=== PATIENT | male | born 1970 | race Caucasian/White ===

== ENCOUNTER 2024-04-30 16:09 | Emergency (ER) | payer BC, SELFPAY ==
[2024-04-30 16:18] VITALS: BP 166/94
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
[2024-04-30 17:14] VITALS: BP 175/113
[2024-04-30 17:35] VITALS: BMI 31.8
[2024-04-30] MEDS: DILAUDID 1 MG IV (17:36)
[2024-04-30] MEDS: ZOFRAN 4 MG IV (17:37)
[2024-04-30 17:59] LABS: % Basophils 0.5 % (0-2); % Eosinophils 1.1 % (0-6); % Immature Granulocytes 0.7 % (0-0.5); % Lymphocytes 10.1 % (20.5-51.1); % Monocytes 7.1 % (1.7-9.3); % Neutrophils 80.5 % (42.2-75.2); Absolute Basophils 0.1 10^3/uL (0-0.2); Absolute Eosinophils 0.2 10^3/uL (0-0.7); Absolute Immature Granulocytes 0.1 10^3/uL (0-0.05); Absolute Lymphocytes 1.3 10^3/uL (1.2-3.4); Absolute Monocytes 0.9 10^3/uL (0.1-0.6); Absolute Neutrophils 10.6 10^3/uL (1.4-6.5); Hematocrit 42.7 % (39.0-52.0); Hemoglobin 14.9 g/dL (13.0-18.0); Mean Corp Hgb Conc. 34.9 g/dL (33.0-37.0); Mean Corpuscular Hgb 27.2 pg (27.0-31.0); Mean Corpuscular Volume 78.1 fL (80.0-94.0); Mean Platelet Volume 10.1 fL (7.4-10.4); Nucleated Red Blood Cells % 0 % (-); Platelet Count 255 10^3/uL (130-400); Red Blood Cell Count 5.47 10^6/uL (4.70-6.10); Red Cell Dist. Width 12.4 % (11.5-14.5); White Blood Cell Count 13.1 10^3/uL (4.8-10.8)
[2024-04-30 18:03] LABS: ALT (SGPT) 40 U/L (0-50); AST (SGOT) 32 U/L (17-59); Albumin 4.5 g/dl (3.5-5.0); Alkaline Phosphatase 47 U/L (38-126); Blood Urea Nitrogen 23 mg/dl (9-20); Calcium 9.3 mg/dl (8.4-10.2); Carbon Dioxide 24 mmol/L (22-30); Chloride 103 mmol/L (98-107); Estimated Creatinine Clearance > 125 ml/min; Glucose 107 mg/dl (70-99); Potassium 4.6 mmol/L (3.5-5.1); Sodium 140 mmol/L (135-145); Total Bilirubin 0.5 mg/dl (0.2-1.3); Total Protein 7.3 g/dl (6.3-8.2); eGFR > 60.00
[2024-04-30] MEDS: ADACEL 0.5 ML IM (18:13)
== END 2024-04-30 18:27 | disposition short-term general hospital (02) ==
LOC: EMR 16:09
PROVIDERS: Registered Nurse; EMERGENCY PHYSICIAN Emergency Medicine; FAMILY PHYSICIAN Physician Assistant Medical
DX: S22.42XA Multiple fractures of ribs, left side, initial encounter for closed fracture (principal); S42.002A Fracture of unspecified part of left clavicle, initial encounter for closed fracture; S60.511A Abrasion of right hand, initial encounter; S40.812A Abrasion of left upper arm, initial encounter; S80.212A Abrasion, left knee, initial encounter; V18.0XXA Pedal cycle driver injured in noncollision transport accident in nontraffic accident, initial encounter; Y93.55 Activity, bike riding; Z23 Encounter for immunization; I10 Essential (primary) hypertension
CPT/HCPCS: 99285; 90471; 71101; 73000; 73030; 73060; 80053; 85025; 90715; 93005

== ENCOUNTER 2024-05-13 23:38 | Inpatient (IN) | payer BC, SELFPAY ==
[2024-05-13 18:48] VITALS: BP 185/103
[2024-05-13 19:31] VITALS: BP 158/99
[2024-05-13 19:32] VITALS: BMI 28.9
[2024-05-13 19:54] LABS: % Basophils 0.5 % (0-2); % Eosinophils 1.1 % (0-6); % Immature Granulocytes 0.5 % (0-0.5); % Lymphocytes 8.4 % (20.5-51.1); % Monocytes 7.6 % (1.7-9.3); % Neutrophils 81.9 % (42.2-75.2); Absolute Basophils 0.1 10^3/uL (0-0.2); Absolute Eosinophils 0.1 10^3/uL (0-0.7); Absolute Immature Granulocytes 0.1 10^3/uL (0-0.05); Absolute Lymphocytes 1.1 10^3/uL (1.2-3.4); Absolute Neutrophils 10.5 10^3/uL (1.4-6.5); Hematocrit 41.1 % (39.0-52.0); Hemoglobin 14.4 g/dL (13.0-18.0); Mean Corpuscular Hgb 28.2 pg (27.0-31.0); Mean Corpuscular Volume 80.4 fL (80.0-94.0); Nucleated Red Blood Cells % 0 % (-); Platelet Count 340 10^3/uL (130-400); Red Blood Cell Count 5.11 10^6/uL (4.70-6.10); Red Cell Dist. Width 11.9 % (11.5-14.5); White Blood Cell Count 12.8 10^3/uL (4.8-10.8)
--- NOTE | 2024-05-13 19:58 | ED.GENMED ---
History of Present Illness
<HECTOR Moreno - Last Filed: 05/13/24 22:52>
General
Chief Complaint: Abdominal Pain
Source: patient
Exam Limitations: none
Time Seen by Provider: 05/13/24 19:16
History of Present Illness
History of Present Illness:
This is a 54 year old male that comes in with c/o abd pain. State that he started with left sided abd pain mid day today. States that the pain has been constant and that a few days ago he had a low grade fever. States that he has had some SOB but he
has 4-5 fracture ribs. States that he is nauseated and vomiting and slightly dizzy. Denies ny fever, chills, chest pain, diarrhea, headache, urinary burning.
Past History
<HECTOR Moreno - Last Filed: 05/13/24 22:52>
Past History
ED Past Medical History: HTN and Other (4-5 Rib fractures)
ED Past Surgical History: Orthopedic (Left clavical surgery)
Social History
Tobacco: Non-smoker
Alcohol: Occasional
Personal:
Living: with family
Employment: Employed
Review of Systems
<HECTOR Moreno - Last Filed: 05/13/24 22:52>
Review of Systems
All Other Systems: ROS reviewed and negative except as documented in HPI and ROS
Constitutional: Reports no symptoms; Denies fever or chills
EENT: Reports no symptoms
Respiratory: Reports trouble breathing; Denies cough
Cardiac: Denies chest pain
ABD/GI: Reports abdominal pain, nausea and vomiting; Denies diarrhea
: Reports no symptoms; Denies dysuria, frequency or urgency
Musculoskeletal: Reports no symptoms
Skin: Reports no symptoms
Neurological: Reports dizzy (Slight); Denies headache
Psychiatric: Reports no symptoms
Phy Exam
<HECTOR Moreno - Last Filed: 05/13/24 22:52>
General Physical Exam
General Presentation: mild distress
General age: appears stated age
General Skin: warm and dry
General Habitus: normal
General Mental: alert
General Hydration: appears well hydrated
ENT Exam
ENT Exam: TM's normal, pharynx normal and neck supple
Eye Exam
Eye Exam: EOMI
Cardiovascular Exam
Cardiovascular Exam: regular rate/rhythm, no edema, no murmur and normal peripheral pulses
Pulmonary Exam
Pulmonary Exam: lungs clear, no respiratory distress, no rales, chest non tender, no crackles, no rhonchi, no wheezing and no cough
Gastrointestinal Exam
Gastrointestinal Exam: soft, no organomegaly, no pulsatile mass, non distended, tender (Left sided and epigastric tenderness with palpation) and other (Hypoactive bowel sounds)
Musculoskeletal Exam
Musculoskeletal Exam: full ROM (Left arm in sling)
Skin Exam
Skin Exam: normal color, warm/dry, no rash and no petechia
Psychiatric Exam
Psychiatric Exam: normal mood/affect
Course
<HECTOR Moreno - Last Filed: 05/13/24 22:52>
Orders/Labs/Results
Orders:
Orders
05/13/24 19:45
Complete Blood Count/With Diff Urgent
Comprehensive Metabolic Panel Urgent
Lipase Urgent
05/13/24 19:58
CT Abd/pelvis W Iv Cont Urgent
Comment:
Reason For Exam: Left sided abd pain
0.9% Sodium Chloride 1000 ml [Nss] 1,000 ml IV BOLUS
HYDROmorphone [Dilaudid] 0.5 mg IV NOW STA
Ondansetron Injectable [Zofran] 4 mg IV NOW STA
Pantoprazole [Protonix IV] 40 mg IV NOW STA
05/13/24 21:37
HYDROmorphone [Dilaudid] 1 mg IV NOW STA
05/13/24 21:57
US Periph Venous LOWER Ext Raymond Urgent
Comment:
Reason For Exam: splenic infarction, evaluation for clot
05/13/24 22:02
Electrocardiogram (*1) Urgent
Reason for Study: Abdominal Pain
EKG- Treatment ONCE
05/13/24 22:30
Anti-Thrombin III Activity [S] Routine
Cardiolipin Ab Panel [S] Routine
PT (F2)c.97G>A([id number])Variant [S] Routine
Protein C, Total Antigen [S] Routine
Protein S Total Antigen [S] Routine
Abnormal Lab Results
05/13/24
19:45
WBC 12.8 H 10^3/uL
(4.8-10.8)
Abs Immat Gran (auto) 0.1 H 10^3/uL
(0-0.05)
Absolute Neuts (auto) 10.5 H 10^3/uL
(1.4-6.5)
Absolute Lymphs (auto) 1.1 L 10^3/uL
(1.2-3.4)
Absolute Monos (auto) 1.0 H 10^3/uL
(0.1-0.6)
Neutrophils % 81.9 H %
(42.2-75.2)
Lymphocytes % 8.4 L %
(20.5-51.1)
Potassium 5.2 H mmol/L
(3.5-5.1)
Glucose 117 H mg/dl
(70-99)
Alkaline Phosphatase 138 H U/L
(38-126)
05/13/24 19:45
05/13/24 19:45
Leukocytosis,
Vital Signs
Initial and Last Documented VS:
Initial Vital Signs
Temp Pulse Resp BP Pulse Ox
97.8 F 86 20 185/103 95
05/13/24 18:48 05/13/24 18:48 05/13/24 18:48 05/13/24 18:48 05/13/24 18:48
Last Documented Vital Signs
Temp Pulse Resp BP Pulse Ox
97.8 F 86 20 177/93 95
05/13/24 18:48 05/13/24 18:48 05/13/24 18:48 05/13/24 20:31 05/13/24 21:48
Sewing Machine Tester consulted with Physician
Sewing Machine Tester consulted with physician?: Yes
Name of Physician Consulted: Dr. Galarza
<Rj Galarza, DO - Last Filed: 05/13/24 21:59>
Orders/Labs/Results
Orders:
Orders
05/13/24 19:45
Complete Blood Count/With Diff Urgent
Comprehensive Metabolic Panel Urgent
Lipase Urgent
05/13/24 19:58
CT Abd/pelvis W Iv Cont Urgent
Comment:
Reason For Exam: Left sided abd pain
0.9% Sodium Chloride 1000 ml [Nss] 1,000 ml IV BOLUS
HYDROmorphone [Dilaudid] 0.5 mg IV NOW STA
Ondansetron Injectable [Zofran] 4 mg IV NOW STA
Pantoprazole [Protonix IV] 40 mg IV NOW STA
05/13/24 21:37
HYDROmorphone [Dilaudid] 1 mg IV NOW STA
05/13/24 21:57
US Periph Venous LOWER Ext Raymond Urgent
Comment:
Reason For Exam: splenic infarction, evaluation for clot
05/13/24 22:02
Electrocardiogram (*1) Urgent
Reason for Study: Abdominal Pain
EKG- Treatment ONCE
05/13/24 22:30
Anti-Thrombin III Activity [S] Routine
Cardiolipin Ab Panel [S] Routine
PT (F2)c.97G>A([id number])Variant [S] Routine
Protein C, Total Antigen [S] Routine
Protein S Total Antigen [S] Routine
Abnormal Lab Results
05/13/24
19:45
WBC 12.8 H 10^3/uL
(4.8-10.8)
Abs Immat Gran (auto) 0.1 H 10^3/uL
(0-0.05)
Absolute Neuts (auto) 10.5 H 10^3/uL
(1.4-6.5)
Absolute Lymphs (auto) 1.1 L 10^3/uL
(1.2-3.4)
Absolute Monos (auto) 1.0 H 10^3/uL
(0.1-0.6)
Neutrophils % 81.9 H %
(42.2-75.2)
Lymphocytes % 8.4 L %
(20.5-51.1)
Potassium 5.2 H mmol/L
(3.5-5.1)
Glucose 117 H mg/dl
(70-99)
Alkaline Phosphatase 138 H U/L
(38-126)
05/13/24 19:45
05/13/24 19:45
Vital Signs
Initial and Last Documented VS:
Initial Vital Signs
Temp Pulse Resp BP Pulse Ox
97.8 F 86 20 185/103 95
05/13/24 18:48 05/13/24 18:48 05/13/24 18:48 05/13/24 18:48 05/13/24 18:48
Last Documented Vital Signs
Temp Pulse Resp BP Pulse Ox
97.8 F 86 20 177/93 95
05/13/24 18:48 05/13/24 18:48 05/13/24 18:48 05/13/24 20:31 05/13/24 21:48
<HECTOR Moreno - Last Filed: 05/13/24 22:52>
MDM/Problems Addressed
Differential Diagnosis Includes:
Diverticulitis, Colitis, Gastritis, Pain due to rib fractures
MDM/Problems Addressed:
This is a 54 year old male that comes in with c/o abd pain. States that this has been constand and started mid day. States that he is nauseated and has vomiting.
Will get labs, give IV fluids and CT scan. Will medicate for pain.
Back into see patient with Dr. Galarza. Explained that his CT shows a large splenic infarction. Called and spoke with the Trauma doctor at [facility]. She states that his CT there was negative for any splenic injury. States that his rib
fracture were on the left but they were 3, 4 and 5th ribs and does not feel that this would cause any injury. Suggested that an echo be done. Explained to patient that he would be admitted. Spoke with the Hospitalist and will hold off on Heparin at
this time and get Bilateral US of the legs looking for any further clots. Will admit patient.
Chronic conditions affecting care:
NA
Acute Exacerbation and/or Progression of Chronic Illness:
NA
<HECTOR Moreno - Last Filed: 05/13/24 22:52>
*Radiology
Radiology exam reviewed: radiology read reviewed (CT-Large acute splenic infarct. Small left pleural effusion and adjacent moderate subpleural subsegmental atelectasis in the left lower lobe. Fusiform infrarenal AAA (2.3cm diameter). Small to
moderate-sized paraesophageal hiatal hernia. Severe diverticulosis in the sigmoid colon. Moderately ) and other (CT cont- Moderately enlarged prostate gland. Mild cardiomegaly. Moderate discogenic degenerative disease at L5/S1 US bilateral legs-No
sonographic evidence for lower extremity Venous thrombosis. )
*Pulse Oximetry
Patient hypoxic: no
*EKG
Interpreted by ED Provider?: Yes
Heart Rate: 76
Rate: normal
Rhythm: sinus
[place]: normal axis
Interval: first degree heart block
QRS Pattern: normal QRS
Ischemia: T-wave inversion (III, VR, aVF, V1, )
*Parks Worker Interpretation
Rate: Parks Worker- N/A
*Critical Care Note
Total Time (30-74mins, 75-104mins- exclusive of procedures): Not Applicable
ED Attending Note
<HECTOR Moreno - Last Filed: 05/13/24 22:52>
-
Portions of this chart may have been created with voice recognition software.� Occasional wrong word or��sound alike� substitutions may have occurred due to the inherent limitations of voice recognition software.
<Rj Galarza DO - Last Filed: 05/13/24 21:59>
ED Attending Note
Patient seen and examined by attending physician: Yes
I performed the substantive portion of visit, reviewed & personally made and approve the management plan that is documented in note by myself or LEE.: Yes
ED Attending Note:
I evaluated patient at bedside. There is no significant tenderness on physical examination however CT imaging does show signs of splenic infarct. He was given narcotic analgesia earlier. [facility] trauma was also notified.
Discharge Plan
Departure
Patient Disposition: Admit
Date of Disposition: 05/13/24
Time of Disposition: 22:01
Admit to: Med/Surg
Presentation/result/management discussed w/ accepting MD/DO: Hospitalist
Patient with high blood pressure during this ER visit?: Yes
Condition: Good
Covid-19: Not Applicable
Discharge Problem:
Acute splenic infarction, Abdominal pain
Prescriptions:
No Action
lisinopril 10 mg Tablet
10 mg PO DAILY
Patient Comments:
04/30/2024: Pt states stopped for a while, and within the last month starting taking again due to symptoms with heart.
methocarbamol 500 mg tablet
500 mg PO TIDPRN PRN (Reason: moderate pain)
oxycodone 5 mg tablet
5 mg PO Q4HPRN PRN (Reason: severe pain)
Referrals:
UNKNOWN - PT DOES,NOT KNOW [Family Provider] -
Interventions
Interventions:
*Risk Screen - Suicide Last Done: 05/13/24 18:48
*General Assessment Last Done: 05/13/24 18:48
*Neglect/Abuse Screening Last Done: 05/13/24 18:48
ED- Fall Risk Assessment Last Done: 05/13/24 21:48
*ED COVID-19 Vaccine History Last Done: 05/13/24 18:52
BG-Dhspia-Uwbnzytjbm Assessment Last Done: 05/13/24 19:49
Discharge Date and Time
Print Language: DIVEHI
[2024-05-13 20:00] VITALS: BP 177/101
[2024-05-13 20:07] LABS: ALT (SGPT) 43 U/L (0-50); AST (SGOT) 31 U/L (17-59); Albumin 4.2 g/dl (3.5-5.0); Alkaline Phosphatase 138 U/L (38-126); Blood Urea Nitrogen 19 mg/dl (9-20); Calcium 9.9 mg/dl (8.4-10.2); Carbon Dioxide 27 mmol/L (22-30); Chloride 100 mmol/L (98-107); Estimated Creatinine Clearance 125 ml/min; Glucose 117 mg/dl (70-99); Lipase 45 U/L (23-300); Potassium 5.2 mmol/L (3.5-5.1); Sodium 139 mmol/L (135-145); Total Bilirubin 0.7 mg/dl (0.2-1.3); eGFR > 60.00
[2024-05-13] MEDS: NSS 1000 IV (20:18)
[2024-05-13] MEDS: DILAUDID 0.5 MG IV (20:20)
[2024-05-13] MEDS: ZOFRAN 4 MG IV (20:20)
[2024-05-13] MEDS: PROTONIX IV 40 MG IV (20:22)
[2024-05-13 20:31] VITALS: BP 177/93
[2024-05-13] MEDS: DILAUDID 1 MG IV (21:43)
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
[2024-05-14] VITALS (10 sets, daily range): BP systolic 141–169; BP diastolic 80–106; BMI 29.7
[2024-05-14] MEDS: ROXICODONE 5 MG PO ×2 (00:08→15:45)
[2024-05-14] MEDS: FLUSH (NSS) 1 FLUSH IV (00:16)
[2024-05-14] MEDS: DILAUDID 1 MG IV ×4 (01:49→20:39)
[2024-05-14] MEDS: ZOFRAN 4 MG IV ×2 (01:49→09:45)
--- NOTE | 2024-05-14 02:13 | PTCARENOTE ---
Patient arrived from ER into room 3353 around 0100. Ambulated from stretcher to bed. Admission questions complete. Tele pack applied showing NSR. Reports 10/09 to 11/08 LUQ abd pain and slight nausea. PRN zofran/dilaudid provided per pt request. Left
clavicle incision with surgical dressing, no drainage. LUE in sling. SCDs on. Pt voided in BR, steady gait. Call ulloa within reach.
[2024-05-14 06:30] LABS: % Basophils 0.6 % (0-2); % Eosinophils 1.2 % (0-6); % Immature Granulocytes 0.4 % (0-0.5); % Lymphocytes 15.4 % (20.5-51.1); % Neutrophils 71.4 % (42.2-75.2); Absolute Basophils 0.1 10^3/uL (0-0.2); Absolute Eosinophils 0.1 10^3/uL (0-0.7); Absolute Lymphocytes 1.5 10^3/uL (1.2-3.4); Absolute Monocytes 1.1 10^3/uL (0.1-0.6); Hemoglobin 14.3 g/dL (13.0-18.0); Mean Corp Hgb Conc. 34.9 g/dL (33.0-37.0); Mean Corpuscular Hgb 28.5 pg (27.0-31.0); Mean Corpuscular Volume 81.7 fL (80.0-94.0); Nucleated Red Blood Cells % 0 % (-); Platelet Count 326 10^3/uL (130-400); Red Blood Cell Count 5.02 10^6/uL (4.70-6.10); Red Cell Dist. Width 11.9 % (11.5-14.5); White Blood Cell Count 9.9 10^3/uL (4.8-10.8)
[2024-05-14 06:51] LABS: ALT (SGPT) 38 U/L (0-50); AST (SGOT) 25 U/L (17-59); Albumin 3.7 g/dl (3.5-5.0); Alkaline Phosphatase 117 U/L (38-126); Blood Urea Nitrogen 15 mg/dl (9-20); Calcium 9.1 mg/dl (8.4-10.2); Carbon Dioxide 23 mmol/L (22-30); Chloride 102 mmol/L (98-107); Estimated Creatinine Clearance > 125 ml/min; Glucose 98 mg/dl (70-99); Potassium 4.8 mmol/L (3.5-5.1); Sodium 136 mmol/L (135-145); Total Bilirubin 0.6 mg/dl (0.2-1.3); Total Protein 6.5 g/dl (6.3-8.2); eGFR > 60.00
[2024-05-14] MEDS: ZESTRIL 10 MG PO (09:00)
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
[2024-05-14 10:51] LABS: Glucose - Point of Care 109 mg/dl (70-99)
--- NOTE | 2024-05-14 10:57 | PTCARENOTE ---
Patient diaphoretic. Blood sugar checked and is 109. Oral temp 98.5 F. Patient is covered with one sheet. Dr. Arellano made aware. Will continue to monitor. Care ongoing at this time.
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
--- NOTE | 2024-05-14 16:26 | PTCARENOTE ---
Patient AOx3. Sling on L arm due to recent clavicle surgery. L radial pulse WNL. Patient on RA with an occasional productive moist cough. NSR with first degree on tele. Patient complained of nausea in beginning of shift. Zofran provided per AUG.
Pain medication provided per AUG. Standby by assist when ambulating. Call ulloa within reach, bed in lowest position and call ulloa within reach.
[2024-05-14] MEDS: NON-FORMULARY ITEM 500 MG PO (18:29)
[2024-05-15] VITALS (9 sets, daily range): BP systolic 136–158; BP diastolic 83–95; PULSE 71–74; O2SAT 94–95
[2024-05-15] MEDS: ROXICODONE 5 MG PO ×2 (00:20→08:00)
--- NOTE | 2024-05-15 02:25 | PTCARENOTE ---
Addendum entered by Rama Long RN 05/15/24 05:35:
Pt oob to bathroom. With movement Pt pain escalated to a 7 very quickly. Pt requesting IV pain medication (see MAR for administration).
Original Note:
Pt continuing to have pain in left upper abd. Pain medication given. Education given on pain medications. Pt having concerns about PO pain medication not alleviating his pain enough. Pt would like to talk to Doctor in morning to see if the PO
medication strength can be upped to try and avoid IV medication. Call ulloa within reach.
[2024-05-15] MEDS: DILAUDID 1 MG IV (03:24)
[2024-05-15 05:23] LABS: % Basophils 0.4 % (0-2); % Eosinophils 1.6 % (0-6); % Immature Granulocytes 0.5 % (0-0.5); % Lymphocytes 10.1 % (20.5-51.1); % Monocytes 10.9 % (1.7-9.3); % Neutrophils 76.5 % (42.2-75.2); Absolute Basophils 0.1 10^3/uL (0-0.2); Absolute Eosinophils 0.2 10^3/uL (0-0.7); Absolute Immature Granulocytes 0.1 10^3/uL (0-0.05); Absolute Lymphocytes 1.3 10^3/uL (1.2-3.4); Absolute Monocytes 1.4 10^3/uL (0.1-0.6); Absolute Neutrophils 9.8 10^3/uL (1.4-6.5); Hematocrit 39.3 % (39.0-52.0); Hemoglobin 13.7 g/dL (13.0-18.0); Mean Corp Hgb Conc. 34.9 g/dL (33.0-37.0); Mean Corpuscular Hgb 28.3 pg (27.0-31.0); Mean Corpuscular Volume 81.2 fL (80.0-94.0); Mean Platelet Volume 10.4 fL (7.4-10.4); Nucleated Red Blood Cells % 0 % (-); Platelet Count 342 10^3/uL (130-400); Red Blood Cell Count 4.84 10^6/uL (4.70-6.10); Red Cell Dist. Width 11.9 % (11.5-14.5); White Blood Cell Count 12.8 10^3/uL (4.8-10.8)
[2024-05-15 05:42] LABS: ALT (SGPT) 33 U/L (0-50); AST (SGOT) 21 U/L (17-59); Albumin 3.6 g/dl (3.5-5.0); Alkaline Phosphatase 118 U/L (38-126); Blood Urea Nitrogen 15 mg/dl (9-20); Calcium 9.1 mg/dl (8.4-10.2); Carbon Dioxide 23 mmol/L (22-30); Chloride 99 mmol/L (98-107); Estimated Creatinine Clearance 121 ml/min; Glucose 101 mg/dl (70-99); Sodium 135 mmol/L (135-145); Total Bilirubin 0.6 mg/dl (0.2-1.3); Total Protein 6.3 g/dl (6.3-8.2); eGFR > 60.00
[2024-05-15] MEDS: ZESTRIL 10 MG PO (08:01)
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
[2024-05-15] MEDS: COLACE 100 MG PO (10:17)
[2024-05-15] MEDS: MIRALAX 17 GRAMS PO (10:17)
[2024-05-15] MEDS: DILAUDID 2 MG PO ×2 (10:17→14:45)
--- NOTE | 2024-05-15 12:58 | PTCARENOTE ---
Patient was having severe left sided abdominal pain this morning with activity. Notified resident and new order for Dilaudid administered. Patient was able to ambulate in hallway and sit in chair, pain 3 out of 10 after Dilaudid dose. For discharge
today.
--- NOTE | 2024-05-15 13:00 | CM ---
Wearing left arm sling. PT recommends Outpatient Therapy when cleared by ortho. OT Eval; no needs.
Met with patient who was preparing for d/c. The patient says he feels ready to go home today however he feels stressed with family responsibilities, as he has 2 children at home and who works.
The patient is aware that PT recommended outpatient therapy, and that Resident Víctor conveyed patient should get script for outpatient therapy from Ortho doctor. Patient says he will be seeing Ortho in follow up tomorrow and will discuss.
Spoke with Dr Black who requested patient be given assistance with getting outpatient xray after discharge.
Patient says he would like to get his outpatient xray today.
Nurse Romi will help patient get to outpatient registration when arrives at 4pm. Per nurse, outpatient radiology said he can come at that time for xrays as outpatient.
Plan home today.
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
--- NOTE | 2024-05-15 15:23 | PTCARENOTE ---
Addendum entered by Romi Caldwell RN 05/15/24 16:36:
Patient met with Dr. Black and new discharge plan created. Patient is going home on Dilaudid. Patient is now happy with discharge . Patiet in no distress at time od discharge, went straight to outpatient testing with .
Original Note:
Patient became flushed and diaphoretic after oral Dilaudid dose. Patient is upset about the pain management plan for discharge. There are issues with his discharge orders at this time. Discussing with Dr. Black.
[2024-05-16 10:10] LABS: Cardiolipin IgA Antibody <10 APL (<=11); Cardiolipin IgM Antibody <10 MPL (<=12); Cardiolipin Igg Antibody <10 GPL (<=14)
[2024-05-16 18:49] LABS: Protein S Total Antigen 141 % (84-134)
[2024-05-16 21:08] LABS: Anti-Thrombin III Activity 117 % (76-128)
[2024-05-16 22:46] LABS: Protein C, Total Antigen >95 % (63-153)
== END 2024-05-15 16:37 | disposition home or self-care (01) | DRG 815 ==
LOC: IMU 23:38
PROVIDERS: Clinical Nurse Specialist Family Health; ADMITTING PHYSICIAN Internal Medicine; ATTENDING PHYSICIAN Internal Medicine; CONSULT PHYSICIAN Surgery; EMERGENCY PHYSICIAN Emergency Medicine; OTHER PHYSICIAN Internal Medicine Hematology & Oncology
DX: D73.5 Infarction of spleen (principal); J90 Pleural effusion, not elsewhere classified; J98.11 Atelectasis; K44.9 Diaphragmatic hernia without obstruction or gangrene; I10 Essential (primary) hypertension; K57.30 Diverticulosis of large intestine without perforation or abscess without bleeding; N40.0 Benign prostatic hyperplasia without lower urinary tract symptoms; I71.43 Infrarenal abdominal aortic aneurysm, without rupture
CPT/HCPCS: 74177; 80053; 81240; 82962; 83690; 85025; 85300; 85302; 85305; 86147; 93005; 93970; 97163; 97165; 99285; Q9967

== ENCOUNTER → 2024-05-15 16:26 | Outpatient (REF) | payer BC, SELFPAY | LOC: RAD 16:26 | PROVIDERS: FAMILY PHYSICIAN Physician Assistant Medical | DX: S22.32XD Fracture of one rib, left side, subsequent encounter for fracture with routine healing (principal) | CPT/HCPCS: 71046 ==